=== PATIENT | male | born 1955 | race Caucasian/White ===

== ENCOUNTER → 2020-08-01 | Outpatient (CLI) | payer MEDICARE, OTHER ==
[~2020-08-01] MED LIST: FENTANYL CITRATE/PF 100MCG/2 ML INJ ONE; LISINOPRIL10 MG PO; PROPOFOL IV EMULSION 10 MG/ML 20 ML VIAL ONE
[2020-08-01 12:17] LABS: BASOPHILS # (AUTO) 0.1 (0.0-0.1); BASOPHILS % 1.2 % (0.0-1.0); EOSINOPHILS # (AUTO) 0.3 (0.0-0.4); EOSINOPHILS % 4.6 % (0.0-6.0); HEMATOCRIT 36.3 % (38.2-49.6); LYMPHOCYTES % 26.4 % (18.0-39.1); MEAN CORPUSCULAR HEMOGLOBIN 30.2 pg (28-32); MEAN CORPUSCULAR HGB CONC 33.1 g/dL (31-35); MEAN CORPUSCULAR VOLUME 91.4 fL (81-99); MONOCYTES # (AUTO) 0.8 (0.2-0.8); MONOCYTES % 10.3 % (4.4-11.3); NEUTROPHILS # (AUTO) 4.3 (2.1-6.9); NEUTROPHILS % 57.4 % (38.7-80.0); PLATELET COUNT 294 x10e3/uL (140-360); RED BLOOD COUNT 3.97 x10e6/uL (4.3-5.7); RED CELL DISTRIBUTION WIDTH 12.9 % (11.7-14.4)
--- NOTE | 2020-08-01 13:37 | Diagnostic Imaging Report ---
Examination: Brain MRI without Contrast History: ^ALZHEIMER DISEASE / BILATERAL LEG Comparison studies: None. Technique: Precontrast: Hi resolution Sag T1 with coronal and axial reformats. Axial DWI, T2, T2 flair, gradient echo or SWI Intravenous contrast: None. Findings: Structural lesions: No intra-or extra-axial masses. Cortical based gliosis of the anterior left temporal pole and left precentral gyrus. No hematomas. Atrophy: General: Severe generalized loss with mild to moderate hippocampal volume loss. Focal: No disproportionate lobar, mesencephalic, pontine, or cerebellar atrophy. Hippocampi, fornices and mammillary bodies: Mild to moderate bilateral hippocampal volume loss. Normal in size and symmetric fornices and mamillary bodies. Banuelos matter: Cortex:No signal abnormalities. No encephalomalacia. Basal ganglia: No atrophy or signal abnormalities. Substantia nigra: No signal abnormalities. Microhemorrhage: None. White matter: There are confluent areas of T2/FLAIR hyperintensity in the periventricular and subcortical white matter, nonspecific. Thalami: No signal abnormalities. Subarachnoid spaces: No signal abnormalities. Ventricles: Normal in size and configuration. No hydrocephalus. Other: Skull: No bone marrow abnormalities. Major arteries and veins: Expected flow voids present in the major arteries and dural sinuses.. Sella: Normal in size. No intra-or suprasellar abnormalities. Craniocervical junction: No abnormalities. Patent foramen magnum. No Chiari one malformation. Paranasal sinuses and mastoid air cells: Scattered T2 hyperintense mucosal thickening of the bilateral ethmoid air cells. Partial opacification of the right sphenoid sinus. IMPRESSION: 1. No acute intracranial abnormality. 2. 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 3. Severe chronic microvascular ischemic change. 4. Prior vascular insults of the left temporal lobe and left precentral gyrus. Signed by: Dr. Nicole Foy M.D. on 08/01/2020 1:34 PM
--- NOTE | 2020-08-02 13:54 | NUR ---
Follow up call made, spoke with pt "alonso" she stated that he was sleepy yesterday and slept most of the day. Today he is back to his baseline. I told her it is normal to be sleepy after receiving anesthesia. No issues noted.
== END ==
LOC: MRI 11:09
PROVIDERS: ATTEND Family Medicine
DX: G30.9 Alzheimer's disease, unspecified (principal); I26.99 Other pulmonary embolism without acute cor pulmonale; R29.898 Other symptoms and signs involving the musculoskeletal system; M62.81 Muscle weakness (generalized)
CPT/HCPCS: 36415; 70551; 85025; 93005; J2704; J3010; U0002

== ENCOUNTER 2020-08-26 12:52 | Inpatient (IN) | payer MEDICARE, OTHER ==
[~2020-08-26] VITALS: Ht 182.9 cm; Wt 69.9 kg
[~2020-08-26 12:52] MED LIST changes: -FENTANYL CITRATE/PF 100MCG/2 ML INJ ONE; -PROPOFOL IV EMULSION 10 MG/ML 20 ML VIAL ONE
[2020-08-26 13:50] LABS: BASOPHILS # (AUTO) 0.1 (0.0-0.1); BASOPHILS % 0.9 % (0.0-1.0); EOSINOPHILS # (AUTO) 0.3 (0.0-0.4); EOSINOPHILS % 3.9 % (0.0-6.0); HEMATOCRIT 34.8 % (38.2-49.6); HEMOGLOBIN 11.7 g/dL (14.0-18.0); LYMPHOCYTES # (AUTO) 1.8 (1.0-3.2); LYMPHOCYTES % 22.6 % (18.0-39.1); MEAN CORPUSCULAR HEMOGLOBIN 30.5 pg (28-32); MEAN CORPUSCULAR HGB CONC 33.6 g/dL (31-35); MEAN CORPUSCULAR VOLUME 90.6 fL (81-99); MONOCYTES # (AUTO) 0.8 (0.2-0.8); MONOCYTES % 10.1 % (4.4-11.3); NEUTROPHILS % 62.1 % (38.7-80.0); PLATELET COUNT 276 x10e3/uL (140-360); RED BLOOD COUNT 3.84 x10e6/uL (4.3-5.7); RED CELL DISTRIBUTION WIDTH 13.2 % (11.7-14.4)
[2020-08-26 14:05] LABS: INR 1.43; PROTHROMBIN TIME 18.2 seconds (11.9-14.5)
[2020-08-26] MEDS ORDERED: HALOPERIDOL LACTATE 5 MG/ML VIAL IM ONE (14:15)
[2020-08-26 14:18] LABS: ALANINE AMINOTRANSFERASE 33 IU/L (0-55); ALBUMIN 4.1 g/dL (3.5-5.0); ALBUMIN/GLOBULIN RATIO 1.5 (0.8-2.0); ALKALINE PHOSPHATASE 98 IU/L (40-150); ANION GAP 15.5 mmol/L (8-16); BLOOD UREA NITROGEN 23 mg/dL (7-26); BUN/CREATININE RATIO 26 (6-25); CALCIUM 9.6 mg/dL (8.4-10.2); CARBON DIOXIDE 25 mmol/L (22-29); CHLORIDE 102 mmol/L (98-107); CREATINE KINASE 419 IU/L (30-200); CREATININE, SERUM 0.88 mg/dL (0.72-1.25); EST GLOMERULAR FILTRATION RATE > 60 ML/MIN (60-); GLUCOSE 72 mg/dL (74-118); POTASSIUM 4.5 mmol/L (3.5-5.1); SODIUM 138 mmol/L (136-145)
[2020-08-26] MEDS ORDERED: PANTOPRAZOLE 40 MG 10ML VIAL IV ONE (15:30)
[2020-08-26] MEDS ORDERED: LORAZEPAM INJ 2 MG/ML VIAL IV ONE (16:00)
[2020-08-26] MEDS: PANTOPRAZOL 40MG/SOD CHL 0.9% 50 ML IV SCH ×2 (16:38→21:00)
[2020-08-26] MEDS ORDERED: WARFARIN SODIUM1 MG PO (16:50)
[2020-08-26] MEDS ORDERED: NAMENDA10 MG PO (16:50)
[2020-08-26] MEDS ORDERED: LASIX20 MG PO (16:51)
[2020-08-26 18:18] VITALS: BP 88/56
[2020-08-26 19:55] VITALS: BP 108/60
[2020-08-26 20:00] VITALS: BP 108/60
[2020-08-26] MEDS: QUETIAPINE FUMARATE 25 MG TAB PO SCH (20:01)
[2020-08-26 20:17] LABS: HEMATOCRIT 38.3 % (38.2-49.6); HEMOGLOBIN 12.3 g/dL (14.0-18.0)
[2020-08-26 21:00] VITALS: BP 108/60
[2020-08-27] VITALS (7 sets, daily range): BP systolic 101–145; BP diastolic 60–77
[2020-08-27 00:34] LABS: HEMATOCRIT 36.6 % (38.2-49.6); HEMOGLOBIN 12.2 g/dL (14.0-18.0)
[2020-08-27] MEDS: PANTOPRAZOL 40MG/SOD CHL 0.9% 50 ML IV SCH ×3 (00:35→12:29)
[2020-08-27 06:54] LABS: HEMOGLOBIN 13.2 g/dL (14.0-18.0)
[2020-08-27 07:10] LABS: INR 1.26; PROTHROMBIN TIME 16.4 seconds (11.9-14.5)
[2020-08-27 07:19] LABS: ALANINE AMINOTRANSFERASE 26 IU/L (0-55); ALBUMIN 3.6 g/dL (3.5-5.0); ALBUMIN/GLOBULIN RATIO 1.4 (0.8-2.0); ALKALINE PHOSPHATASE 97 IU/L (40-150); ANION GAP 12.4 mmol/L (8-16); BLOOD UREA NITROGEN 13 mg/dL (7-26); BUN/CREATININE RATIO 17 (6-25); CARBON DIOXIDE 22 mmol/L (22-29); CHLORIDE 109 mmol/L (98-107); CREATININE, SERUM 0.78 mg/dL (0.72-1.25); EST GLOMERULAR FILTRATION RATE > 60 ML/MIN (60-); GLUCOSE 87 mg/dL (74-118); POTASSIUM 4.4 mmol/L (3.5-5.1); SODIUM 139 mmol/L (136-145)
[2020-08-27] MEDS ORDERED: FUROSEMIDE 20 MG TAB PO SCH (09:00)
[2020-08-27] MEDS ORDERED: MEMANTINE 10 MG TAB PO SCH (09:00)
[2020-08-27] MEDS ORDERED: PROPOFOL IV EMULSION 10 MG/ML 20 ML VIAL ONE (12:11)
[2020-08-27] MEDS ORDERED: MIDAZOLAM HCL 2 MG/2 ML VIAL ONE (12:29)
[2020-08-27 12:37] LABS: HEMATOCRIT 39.5 % (38.2-49.6); HEMOGLOBIN 13.2 g/dL (14.0-18.0)
[2020-08-27] MEDS ORDERED: OLANZAPINE 5 MG TAB PO PRN (13:30)
[2020-08-27] MEDS: QUETIAPINE FUMARATE 25 MG TAB PO SCH (17:31)
[2020-08-27] MEDS ORDERED: QUETIAPINE FUMA25 MG PO (18:13)
[2020-08-27] MEDS ORDERED: PANTOPRAZOLE SO40 MG PO (18:14)
== END 2020-08-27 18:14 | disposition home or self-care (01) | DRG 369 ==
LOC: ER 13:20 → ERHOLD 14:59 → MED/SURG2 17:18
PROC: 0DJ08ZZ Inspection of Upper Intestinal Tract, Via Natural or Artificial Opening Endoscopic (ICD-10-PCS; principal; 2020-08-27 15:30)
DX: K20.91 Esophagitis, unspecified with bleeding (principal); F02.81 Dementia in other diseases classified elsewhere, unspecified severity, with behavioral disturbance; I10 Essential (primary) hypertension; Z86.711 Personal history of pulmonary embolism; Z79.01 Long term (current) use of anticoagulants; Z74.01 Bed confinement status; K29.70 Gastritis, unspecified, without bleeding; K44.9 Diaphragmatic hernia without obstruction or gangrene; G30.9 Alzheimer's disease, unspecified; Z11.59 Encounter for screening for other viral diseases
CPT/HCPCS: 36415; 43239; 71045; 80053; 82270; 82550; 82553; 83690; 84484; 85014; 85018; 85025; 85610; 86850; 86900; 93970; 99284; J1630; J2060; J2250; U0002

== ENCOUNTER 2020-12-24 21:07 | Emergency (ER) | payer MEDICARE ==
[~2020-12-24] VITALS: Ht 182.9 cm; Wt 72.6 kg
[~2020-12-24 21:07] MED LIST changes: +LASIX20 MG PO; +NAMENDA10 MG PO; +PANTOPRAZOLE SO40 MG PO; +QUETIAPINE FUMA25 MG PO; +WARFARIN SODIUM1 MG PO
[2020-12-24 21:34] LABS: BASOPHILS % 0.2 % (0.0-1.0); EOSINOPHILS # (AUTO) 0.1 (0.0-0.4); EOSINOPHILS % 0.8 % (0.0-6.0); HEMATOCRIT 32.7 % (38.2-49.6); HEMOGLOBIN 10.8 g/dL (14.0-18.0); LYMPHOCYTES # (AUTO) 1.8 (1.0-3.2); LYMPHOCYTES % 21.7 % (18.0-39.1); MEAN CORPUSCULAR HEMOGLOBIN 29.9 pg (28-32); MEAN CORPUSCULAR VOLUME 90.6 fL (81-99); MONOCYTES # (AUTO) 1.2 (0.2-0.8); MONOCYTES % 13.9 % (4.4-11.3); NEUTROPHILS # (AUTO) 5.3 (2.1-6.9); PLATELET COUNT 194 x10e3/uL (140-360); RED BLOOD COUNT 3.61 x10e6/uL (4.3-5.7); RED CELL DISTRIBUTION WIDTH 13.6 % (11.7-14.4)
[2020-12-24 21:49] LABS: ALANINE AMINOTRANSFERASE 32 IU/L (0-55); ALBUMIN 3.6 g/dL (3.5-5.0); ALBUMIN/GLOBULIN RATIO 1.3 (0.8-2.0); ALKALINE PHOSPHATASE 75 IU/L (40-150); ANION GAP 13.4 mmol/L (8-16); BLOOD UREA NITROGEN 32 mg/dL (7-26); BUN/CREATININE RATIO 33 (6-25); CALCIUM 8.5 mg/dL (8.4-10.2); CARBON DIOXIDE 24 mmol/L (22-29); CHLORIDE 107 mmol/L (98-107); CREATINE KINASE 294 IU/L (30-200); CREATININE, SERUM 0.96 mg/dL (0.72-1.25); EST GLOMERULAR FILTRATION RATE > 60 ML/MIN (60-); GLUCOSE 113 mg/dL (74-118); POTASSIUM 4.4 mmol/L (3.5-5.1); SODIUM 140 mmol/L (136-145)
[2020-12-24] MEDS ORDERED: SODIUM CHLORIDE 0.9% 1000ML 1,000 ML IV STA (21:49)
[2020-12-24] MEDS ORDERED: DEXAMETHASONE SOD PHOS 10 MG/1 ML VIAL IV ONE (23:30)
[2020-12-25 00:19] VITALS: BP 106/64
== END 2020-12-25 00:20 | disposition home or self-care (01) ==
LOC: ER 21:11
DX: U07.1 COVID-19 (principal); R50.9 Fever, unspecified; R05 Cough; G30.9 Alzheimer's disease, unspecified; F02.80 Dementia in other diseases classified elsewhere, unspecified severity, without behavioral disturbance, psychotic disturbance, mood disturbance, and anxiety; Z86.73 Personal history of transient ischemic attack (TIA), and cerebral infarction without residual deficits; Z86.711 Personal history of pulmonary embolism
CPT/HCPCS: 36415; 71045; 80053; 82550; 82553; 83880; 84484; 85025; 93005; 99284; J1100; J7030; U0002